=== PATIENT | male | born 1990 | race Caucasian/White ===

== ENCOUNTER 2020-04-08 09:54 | Observation (INO) | payer OTHER, SELFPAY ==
[2020-04-08] VITALS (20 sets, daily range): BP systolic 110–144; BP diastolic 60–89; PULSE 44–71; RESP 17–24; TEMP 36–37.1; O2SAT 98–100
[2020-04-08 10:22] LABS: Abs Immature Grans 0.03 10^3/uL (0.0-0.06); HCT 46.9 % (40.0-50.0); HGB 15.8 g/dL (13.5-17.5); MCH 30.5 pg (27.0-33.0); MCHC 33.7 % (32.0-36.0); MCV 90.5 fL (80-95); MPV 13.3 fL (8.0-11.0); Nucleated RBC 0 %; RBC 5.18 10^6/uL (4.36-5.78); RDW 12.7 % (11.8-14.1); RDW-SD 42.1 fL
[2020-04-08 10:34] LABS: ALT 30 U/L (16-63); AST 18 U/L (15-37); Albumin 4.2 g/dL (3.4-5.0); Alkaline Phosphatase 115 U/L (46-116); Anion Gap 8.4 mmol/L (3-11); BUN 8 mg/dL (7-18); CO2 28.6 mmol/L (21.0-32.0); CREATININE 0.98 mg/dL (0.70-1.30); Calcium 9.1 mg/dL (8.5-10.1); Chloride 104 mmol/L (98-107); Glucose 93 mg/dL (74-106); Lipase 44 U/L (73-393); Potassium 4.1 mmol/L (3.5-5.1); Sodium 141 mmol/L (136-145); Total Protein 7.8 g/dL (6.4-8.2)
[2020-04-08] MEDS: Normal Saline 1,000 ML 1000 ML IV (10:34)
[2020-04-08] MEDS: Ketorolac 30 MG/ML VIAL IVP (10:34)
[2020-04-08 10:35] LABS: Absolute Lymphocyte Count 2.18 10^3/uL (1.2-3.4); Absolute Neutrophil Count 8.35 10^3/uL (1.2-6.7); Atypical Lymphocytes % 5
[2020-04-08 10:36] LABS: Absolute Monocyte Count 1.57 10^3/uL (0.1-0.8); Diff Comment Manual Differential; RBC Morphology Normal
[2020-04-08 10:37] LABS: Platelet Count 157 10^3/uL (130-400)
[2020-04-08 10:57] LABS: Bilirubin Negative (Negative); Blood Negative (Negative); Clarity Clear (Clear); Glucose Negative (Negative); Ketones Negative (Negative); Leukocyte Esterase Negative (Negative); Nitrite Negative (Negative); Urobilinogen 0.2 EU/dL (Up TO 0.2)
--- NOTE | 2020-04-08 11:00 | DI.CT_ITS ---
EXAM: CT ABDOMEN PELVIS W CLINICAL HISTORY: rlq pain, anorexia, r/o appe TECHNIQUE: Imaging Protocol: Axial computed tomography images with coronal and sagittal reformatted images were created and reviewed CONTRAST MATERIAL: Intravenous: Omnipaque 350 Contrast volume:100 mL Oral: No COMPARISON: No exams were available for comparison FINDINGS: ABDOMEN: Lung Bases: Normal where visualized. Liver: Normal density. No measurable mass. Portal, Superior Mesenteric, and Splenic Veins: Unremarkable. Gallbladder and Biliary Tract: No radiodense calculus or dilation. Pancreas: Normal density, no abnormal calcifications or inflammatory process. Spleen: Normal. Adrenals: No masses seen. Kidneys: Normal size, contour and axis. 2 mm nonobstructing stone in the midpole of the left kidney. No masses seen. Abdominal Aorta: Abdominal portion non-dilated. Bowel: No obstruction or bowel wall thickening. The appendix measures 1.4 cm in diameter. There is s urrounding inflammation. An appendicolith is present. The finding is consistent with acute appendic itis. Peritoneal Cavity: No abscess or pneumoperitoneum. Lymph Nodes: Mildly enlarged lymph nodes are seen in the right lower quadrant which are likely reacti ve. Bones: Unremarkable. Soft Tissues: Unremarkable. PELVIS: Bladder: Symmetric distention, no gross wall thickening. Reproductive Organs: Unremarkable as visualized. Lymph Nodes: Mildly enlarged lymph nodes are seen in the right lower quadrant which are likely reacti ve. Bones: Within normal limits. IMPRESSION: Findings consistent with acute appendicitis. There is an appendicolith. No abscess or free air. The findings were discussed with the emergency department on the date of the examination. RADIATION DOSE DELIVERED: Total DLP DATA REPOSITORY: All CT scans at this facility are submitted to the National Radiology Data Registry (NRDR) Dose Index Registry (DIR) with the [employer] (A[employer]). RADIATION OPTIMIZATION: All CT scans at this facility use at least one of these dose optimization te chniques: automated exposure control; mA and/or kV adjustment per patient size (includes targeted exa ms where dose is matched to clinical indication); or iterative reconstruction.
[2020-04-08] MEDS: Omnipaque 350 MG/ML 100 ML BTL IJ (11:02)
[2020-04-08] MEDS: Normal Saline - Diluent 50 ML VIAL IV (11:07)
--- NOTE | 2020-04-08 11:14 | ED.GENADUL_ITS ---
Discharge Plan Disposition Patient Disposition: [facility] INPATIENT Condition: Stable Discharge Details Chief Complaint: Abd Prob Clinical Impression: Appendicitis Attending Provider: Rosalba Millan Primary Care Provider: None,None ED Provider: Gonzalo Osorio Discharge Data Discharge Date/Time-TO BE ENTERED AT DEPARTURE: 04/08/20 12:14 Medical Decision Making 29-year-old male presents with 2 days of right lower quadrant abdominal pain, suspected fever at home, but no temperature to confirm. Physical exam demonstrates right lower quadrant abdominal tenderness, with rebound. Negative Rovsing sign, differential is highest for appendicitis. CT scan reveals appendicitis and appendicolith. Will consult surgery, he does have mild white count but is otherwise hemodynamically stable. Will start Zosyn, discussed the case with Dr. Millan, she agrees on indications for surgery. Patient will be transferred to surgery for surgical management. I have extensively reviewed the treatment plan with the patient. I have addressed all patient concerns at this time. I have also discussed the plan with the admitting physician and they agree with the current assessment and plan and have agreed to assume responsibility for the patient. All parties demonstrate verbal understanding and agreement with our assessment and plan at this time. Also of note I did contact the patient's significant other and informed her of the plan. She is in agreement. All questions were answered. HPI General Date/Time Provider Initiated Documentation: 04/08/20 10:08 . HPI Narrative: 29-year-old male who is currently visiting from [place], presents for abdominal pain in the right lower quadrant for the past 2 days, he is eaten nothing since yesterday afternoon. Does admit to thin stools but denies constipation diarrhea or vomiting. He denies numbness or tingling. He does admit to chills and a subjective fever. He denies chest pain tearing or ripping sensation. No other sick contacts. No other complaints at this time. No prior abdominal surgeries. Related Data Home Medications Medication Instructions Recorded Confirmed Unknown [No Known Home Meds] 04/08/20 04/08/20 Allergies Allergy/AdvReac Type Severity Reaction Status Date / Time No Known Allergies Allergy Unverified 04/08/20 10:32 General Stated Complaint: Abd Prob WILIAN: 3 Review of Systems All systems reviewed & are unremarkable except as noted in HPI and below PFSH Social History (Reviewed 04/08/20 @ 13:11 by AMRIAN Leyva Smoking/Tobacco Use Status: Never Alcohol Intake: current Alcohol Intake frequency: a few times a week Alcohol type: beer Drug use: Never Substance use type: does not use Do you feel safe at home: Yes Do you feel safe in your relationship?: Yes Exam Narrative Exam Narrative: 1.Const: Well-nourished, Well-developed, appearing stated age 2.Eyes: PERRL, no conjunctival injection, and symmetrical lids. 3.ENT: Atraumatic external nose and ears. Moist MM. Neck: Symmetric, trachea midline, No thyromegaly. 4.CVS: +S1/S2, No murmurs or gallops. Peripheral pulses 2+ and equal in all extremities. Brisk capillary refill in all extremities. 5.RESP: Unlabored respiratory effort. Clear to auscultation bilaterally. No wheezes rales or rhonchi 6.GI: Soft, right lower quadrant abdominal pain, positive pain at McBurney's point, negative Akbar sign. Negative obturator and psoas sign. Genital exam demonstrates normal cremasteric reflex, no testicular or scrotal tenderness. 7.MSK: Normocephalic/Atraumatic, Extremities w/o deformity or ttp No cyanosis or clubbing, Normal movement of all extremities 8.Skin: Warm, Dry. No rashes or lesions. 9.Neuro: integrated marketing specialist II-XII grossly intact. Sensation grossly intact, no focal neurologic deficits. 10.Psych: (AAO) x3. Appropriate mood and affect Course Vital Signs Vital signs: Vital Signs Temperature 37.1 C 04/08/20 10:01 Pulse 71 04/08/20 10:01 Blood Pressure 138/84 04/08/20 10:01 Pulse Oximetry 98 04/08/20 10:01 Temperature 37.1 C 04/08/20 10:01 Temperature Source Oral 04/08/20 10:01 Pulse 71 04/08/20 10:01 Respiratory Effort Non-Labored 04/08/20 10:32 Blood Pressure 138/84 04/08/20 10:01 Blood Pressure Position Sitting 04/08/20 10:01 Pulse Oximetry 98 04/08/20 10:01 Oxygen Delivery Method Room Air 04/08/20 10:01 Oxygen Flow Rate 0 04/08/20 10:01 Pain Level 5 04/08/20 10:01 Lab/Test Results Lab/Test Results: Laboratory Tests Range/Units 04/08/20 04/08/20 04/08/20 10:10 10:10 10:10 WBC (4.4-10.8) 10^3/uL 12.10 H RBC (4.36-5.78) 10^6/uL 5.18 Hgb (13.5-17.5) g/dL 15.8 Hct (40.0-50.0) % 46.9 MCV (80-95) fL 90.5 MCH (27.0-33.0) pg 30.5 MCHC (32.0-36.0) % 33.7 RDW (11.8-14.1) % 12.7 Plt Count (130-400) 10^3/uL 157 MPV (8.0-11.0) fL 13.3 H Immature Gran % 0.0 Neutrophils % 69.0 Lymphocytes % 13.0 Atypical Lymphs % 5 Monocytes % 13.0 Eosinophils % 0.0 Basophils % 0.0 Nucleated RBC % % 0 Absolute Neutrophils (1.2-6.7) 10^3/uL 8.35 H Absolute Lymphocytes (1.2-3.4) 10^3/uL 2.18 Absolute Monocytes (0.1-0.8) 10^3/uL 1.57 H Absolute Eosinophils (0.0-0.7) 10^3/uL 0.00 Absolute Basophils (0.0-0.2) 10^3/uL 0.00 RBC Morphology Normal VBG Lactate (0.6-1.4) mmol/L 1.0 Sodium (136-145) mmol/L 141 Potassium (3.5-5.1) mmol/L 4.1 Chloride (98-107) mmol/L 104 Carbon Dioxide (21.0-32.0) mmol/L 28.6 Anion Gap (3-11) mmol/L 8.4 BUN (7-18) mg/dL 8 Creatinine (0.70-1.30) mg/dL 0.98 Estimated GFR/1.73 m2 (mL/min/1.73m2) >= 60.00 Glucose (74-106) mg/dL 93 Calcium (8.5-10.1) mg/dL 9.1 Total Bilirubin (0.2-1.0) mg/dL 1.0 AST (15-37) U/L 18 ALT (16-63) U/L 30 Alkaline Phosphatase (46-116) U/L 115 Total Protein (6.4-8.2) g/dL 7.8 Albumin (3.4-5.0) g/dL 4.2 Lipase (73-393) U/L 44 Urine Color (Yellow) Urine Clarity (Clear) Urine pH (5-8) Ur Specific [place] (1.005-1.025) Urine Protein (Negative) mg/dL Urine Ketones (Negative) mg/dL Urine Blood (Negative) Urine Nitrite (Negative) Urine Bilirubin (Negative) Urine Urobilinogen (Up TO 0.2) EU/dL Ur Leukocyte Esterase (Negative) Urine Glucose (Negative) mg/dL Range/Units 04/08/20 10:40 WBC (4.4-10.8) 10^3/uL RBC (4.36-5.78) 10^6/uL Hgb (13.5-17.5) g/dL Hct (40.0-50.0) % MCV (80-95) fL MCH (27.0-33.0) pg MCHC (32.0-36.0) % RDW (11.8-14.1) % Plt Count (130-400) 10^3/uL MPV (8.0-11.0) fL Immature Gran % Neutrophils % Lymphocytes % Atypical Lymphs % Monocytes % Eosinophils % Basophils % Nucleated RBC % % Absolute Neutrophils (1.2-6.7) 10^3/uL Absolute Lymphocytes (1.2-3.4) 10^3/uL Absolute Monocytes (0.1-0.8) 10^3/uL Absolute Eosinophils (0.0-0.7) 10^3/uL Absolute Basophils (0.0-0.2) 10^3/uL RBC Morphology VBG Lactate (0.6-1.4) mmol/L Sodium (136-145) mmol/L Potassium (3.5-5.1) mmol/L Chloride (98-107) mmol/L Carbon Dioxide (21.0-32.0) mmol/L Anion Gap (3-11) mmol/L BUN (7-18) mg/dL Creatinine (0.70-1.30) mg/dL Estimated GFR/1.73 m2 (mL/min/1.73m2) Glucose (74-106) mg/dL Calcium (8.5-10.1) mg/dL Total Bilirubin (0.2-1.0) mg/dL AST (15-37) U/L ALT (16-63) U/L Alkaline Phosphatase (46-116) U/L Total Protein (6.4-8.2) g/dL Albumin (3.4-5.0) g/dL Lipase (73-393) U/L Urine Color (Yellow) Yellow Urine Clarity (Clear) Clear Urine pH (5-8) 8.0 Ur Specific [place] (1.005-1.025) 1.020 Urine Protein (Negative) mg/dL Negative Urine Ketones (Negative) mg/dL Negative Urine Blood (Negative) Negative Urine Nitrite (Negative) Negative Urine Bilirubin (Negative) Negative Urine Urobilinogen (Up TO 0.2) EU/dL 0.2 Ur Leukocyte Esterase (Negative) Negative Urine Glucose (Negative) mg/dL Negative
[2020-04-08] MEDS: PIPERACILLIN/TAZO 4.5 GM in Normal Saline 100 ML IVPB (11:30)
--- NOTE | 2020-04-08 11:55 | HPE_ITS ---
Date of service: 04/08/20 Time of Service: 11:55 Assessment and Plan Assessment and plan (1) Appendicitis: Status: Acute Assessment and plan: Patient presents with a 48 hour history of RLQ pain with associated nausea and anorexia. CT scan shows appendicitis. Reviewed and discussed laparoscopic appendectomy procedure. Discussed possible complications of the procedure to include bleeding, pain, perforation, infection, sore throat, aspiration and adverse reaction to the medications. Questions were answered to patient?s satisfaction. No guarantees were implied or given. P// Laparoscopic Appendectomy History of Present Illness History of Present Illness Chief Complaint: RLQ Pain Narrative: 29 y/o male with a benign medial history presented to the ER with complaints of RLQ pain x 48 hours with associated nausea and anorexia. He reports over the past 2 days he had progressively worsening lower abdominal pain, which did not improve. He describes subjective fevers and chills. CT scan showed appendicitis. He denies any history of asthma, chest pain, palpitations, dyspnea or dysnpea with exertion. He has never had surgery nor anesthesia for any procedure. He has been visiting [place] for the past several weeks with his significant other. Review of Systems Cardiovascular Cardiovascular: Denies dyspnea on exertion Respiratory Respiratory: Denies cough and Denies dyspnea on exertion Gastrointestinal Gastrointestinal: Reports as per [facility] Social History Smoking/Tobacco Use Status: Never Alcohol Intake: current Alcohol Intake frequency: a few times a week Alcohol type: beer Drug use: Never Substance use type: does not use Do you feel safe at home: Yes Do you feel safe in your relationship?: Yes Meds Home Medications and Allergies Home Medications Medication Instructions Recorded Confirmed Type Unknown [No Known Home Meds] 04/08/20 04/08/20 History Allergies Allergy/AdvReac Type Severity Reaction Status Date / Time No Known Allergies Allergy Unverified 04/08/20 10:32 Exam Const General: cooperative, healthy appearing and in distress mild Orientation: alert and oriented x3 Resp Effort & Inspection: normal respiratory effort, no audible wheezes and no cough Auscultation: clear to auscultation bilaterally Cardio Rate: regular rate Rhythm: regular rhythm Heart Sounds: S1 normal, S2 normal and no murmurs GI Palpation: soft, guarding and tender in the RLQ Auscultation: hypoactive bowel sounds Results Labs Result diagrams: 04/08/20 10:10 04/08/20 10:10 Labs: Laboratory Results - last 24 hr 04/08/20 04/08/20 04/08/20 10:10 10:10 10:10 WBC 12.10 H RBC 5.18 Hgb 15.8 Hct 46.9 MCV 90.5 MCH 30.5 MCHC 33.7 RDW 12.7 Plt Count 157 MPV 13.3 H Immature Gran % 0.0 Neutrophils % 69.0 Lymphocytes % 13.0 Atypical Lymphs % 5 Monocytes % 13.0 Eosinophils % 0.0 Basophils % 0.0 Nucleated RBC % 0 Absolute Neutrophils 8.35 H Absolute Lymphocytes 2.18 Absolute Monocytes 1.57 H Absolute Eosinophils 0.00 Absolute Basophils 0.00 RBC Morphology Normal VBG Lactate 1.0 Sodium 141 Potassium 4.1 Chloride 104 Carbon Dioxide 28.6 Anion Gap 8.4 BUN 8 Creatinine 0.98 Estimated GFR/1.73 m2 >= 60.00 Glucose 93 Calcium 9.1 Total Bilirubin 1.0 AST 18 ALT 30 Alkaline Phosphatase 115 Total Protein 7.8 Albumin 4.2 Lipase 44 Urine Color Urine Clarity Urine pH Ur Specific [place] Urine Protein Urine Ketones Urine Blood Urine Nitrite Urine Bilirubin Urine Urobilinogen Ur Leukocyte Esterase Urine Glucose 04/08/20 10:40 WBC RBC Hgb Hct MCV MCH MCHC RDW Plt Count MPV Immature Gran % Neutrophils % Lymphocytes % Atypical Lymphs % Monocytes % Eosinophils % Basophils % Nucleated RBC % Absolute Neutrophils Absolute Lymphocytes Absolute Monocytes Absolute Eosinophils Absolute Basophils RBC Morphology VBG Lactate Sodium Potassium Chloride Carbon Dioxide Anion Gap BUN Creatinine Estimated GFR/1.73 m2 Glucose Calcium Total Bilirubin AST ALT Alkaline Phosphatase Total Protein Albumin Lipase Urine Color Yellow Urine Clarity Clear Urine pH 8.0 Ur Specific [place] 1.020 Urine Protein Negative Urine Ketones Negative Urine Blood Negative Urine Nitrite Negative Urine Bilirubin Negative Urine Urobilinogen 0.2 Ur Leukocyte Esterase Negative Urine Glucose Negative Last Vital Signs Temp 37.1 C 04/08/20 10:01 Pulse 71 04/08/20 10:01 BP 138/84 04/08/20 10:01 Pulse Ox 98 04/08/20 10:01
[2020-04-08] MEDS: Lactated Ringers 1,000 ML 75 ML IV ×2 (12:30→15:33)
[2020-04-08] MEDS: Bupivacaine LIPOSOME/PF 133 MG/10 ML VIAL IJ (13:02)
--- NOTE | 2020-04-08 13:10 | APP_PTH ---
PATIENT: EDWINA PINEDA LOC: U#:[id number] AGE/SX: 29/M ROOM: 217 RE04/08/[address]: Rosalba Millan MD : 1990 BED: A DIS: 04/08/2020 SPEC #: [id number] RECD: 04/09/20 08:54 STATUS: REGINA REQ #: [id number] SANTHOSH: 04/08/20 13:[address]: Rosalba Millan DEPT: Surgical Specimen RECD BY: Naomie Faith ENTERED: 04/09/20 08:54 SP TYPE: Appendix OTHR DR: None Tissues: 1 - APPENDIX NOT INCIDENTAL Procedures: GROSS AND MICRO LEVEL 3 Comments: [id number]
--- NOTE | 2020-04-08 13:45 | W.PM.OP ---
Date of service: 04/08/20 Time of Service: 13:49 Operative Note Operative Note DATE OF PROCEDURE: 04/08/20 PRE-OP DIAGNOSIS: Appendicitis POST-OP DIAGNOSIS: same PROCEDURE: laparoscopic Appendectomy SURGEON: Rosalba Millan PREPARATION SUPERVISOR CANNING: Aracely Freitas ANESTHESIA: GETA (ASA 1E/ Mauri Atwood CRNA) ESTIMATED BLOOD LOSS: 25 PATHOLOGY: other (Appendix) COMPLICATIONS: None Patient was transported to: PACU Patient's condition: stable Indications: Mr. Daugherty is a pleasant 29 year old male who has had abdominal pain for 48 hours. He has had some loose stools and nausea. CT scan showed acute appendicitis without rupture Laparoscopic Appendectomy was recommended. Risks, benefits and complications have been reviewed. Complications include but are not limited to bleeding, infection, injury to adjacent bowel, abscess formation, staple line leak, inability to do the procedure laparoscopically and adverse reaction to the medications. Questions were entertained and answered to their satisfaction and they wished to proceed. No guarantees were given or implied. Findings: Inflamed appendix, retrocecal Procedure Description: After informed consent was obtained the patient was taken to the operating room placed in the supine position SCDs were applied as well as monitors. A timeout was done. The patient was then placed under general anesthesia and intubated without any difficulty. Next a Sawyer catheter was placed in a standard surgical fashion. The hair was clipped on the lower abdomen. At this point the abdomen was prepped and draped in a sterile surgical fashion with chlorhexidine. A second timeout was done and the patient's name, date of , operation to be performed, DVT prophylaxis, antibiotic given, and fire risk was assessed. Exparel was injected into the dermis just above the umbilicus. A small 5 mm incision was made with an 11 blade. The skin was grasped with penetrating towel clamps on either side of the incision and then using a Visiport a 5 mm port was placed under direct visualization into the abdomen. The abdomen was insufflated. Local anesthetic was then injected just above the pubic symphysis just to the right of midline. A small 5 mm incision was made with an 11 blade and another 5 mm port was placed under direct visualization into the abdomen. The local anesthetic was then injected in the left lower quadrant area and a 11 mm incision was made with an 11 blade. A 11 mm port was then placed under direct visualization. The patient's bed was then turned to the left head down allowing me to sweep of the small bowel out of the right lower quadrant. The cecum was gently grasped and the appendix was identified. The appendix looked inflammed and thickened. The appendix was retrocecal. Light brown fluid was noted in the pelvis. The cecum was noted to be redundant. The appendix was grasped at the neck and pulled up slightly allowing me to visualize the junction with the cecum. Using the Amanda dissector a small window was made in the meso-appendix. Using a laparoscopic straight stapler the appendix was transected at the junction with the cecum. Using the laparoscopic LigaSure the mesoappendix was slowly transected. This was difficult due to adhesions between the meso-appendix and the cecum. Once the meso-appendix was transected, the appendix was placed into an Endo Catch bag and removed through the 11 mm port site. The port was placed back into the abdomen and the staple line was identified. No bleeding was noted. The transected mesentery was identified and no bleeding was noted. The abdomen was then irrigated with 500 cc of warm normal saline. The effluent was clear. The staple line was inspected one more time and no bleeding was identified at this point. The 2 5 mm ports were then removed under direct visualization and no bleeding was noted from the fascia. The insufflation was stopped and the 11 mm port was removed. The 11 mm port site fascia was closed with a 0 Vicryl [id number] suture. The skin was then closed with 4-0 Vicryl. The skin was cleaned and dried and skin affix was applied. The patient was woken up, extubated and taken back to recovery room in stable condition. There were no immediate complications. Sponge instrument needle counts were correct at the end of the case x2.
[2020-04-08] MEDS: Normal Saline Flush 10 ML SYR IVP (15:37)
[2020-04-08] MEDS: Pantoprazole 40 MG VIAL IVP (15:37)
--- NOTE | 2020-04-08 18:43 | W.PM.DS.N ---
Date of service: 04/08/20 Time of Service: 18:43 DS: Diagnosis Discharge Diagnosis (1) Appendicitis: Status: Acute Discharge Plan Disposition Patient Disposition: HOME Condition: Stable Discharge Details Chief Complaint: Abd Prob Clinical Impression: Appendicitis Reason For Visit: appendicitis Admit Date/Time: 04/08/20 14:30 Admit Provider: Rosalba Millan Attending Provider: Rosalba Millan Primary Care Provider: None,None ED Provider: Gonzalo Osorio Hospital Course Hospital Course: pt came into the ED w/ s/s of acute appendicitis adn labs and CT compatible w/ such. He underwent unremarkable laspreascopic appendectomy. He is doing well at this time. He is tolerating a regular diet. He i sup walking around. He has urinated. His pain is controlled. He is discharged in stable adn satisfactory conditions w/ instructions in wound care/activity/warning signs. Home Meds and New Rx's Prescriptions: New ibuprofen 600 mg tablet 600 mg PO Q6H PRNQty: 90 RF: 0 tramadol 50 mg tablet 50 mg PO Q6H PRN (Reason: pain (scale score 7-10)) Qty: 10 RF: 0 Discharge Instructions Additional Instructions: Keep an ice bag on the incision. 20 minutes on and 20 minutes off. Ice keeps the swelling down and swelling causes pain. Make sure you wrap the ice pack in a towel and don't apply directly to the skin. -No driving x 72hrs or of you are taking narcotic pain medications. -Do Not remove any steri tapes (white tapes) that cover the incision. You can remove the tegaderm dressings in am. -Follow-up with regular healthcare provider in one weeks time. -soft diet: No beef/pork raw vegetables x1 -week. Cooked vegetables are fine -no straining to move bowels -pain meds are very constipating: if you do not move your bowels daily take a dose of OTC milk of magnesia -It is ok to shower. No bathe, soaking, swimming or hot tubs -Keep wound clean and dry. Wash incision with soap and water daily. Pat dry, don't rub. -If you do not have steri-tapes on your incision, than keep the wound covered with a gauze and antibacterial ointment. -You may find that your appetite is smaller. Eat 3-6 small meals throughout the day. It is important to drink lots of water after surgery, 6-10 glasses a day. -If you were given an incentive spirometry (breathing marketing services manager?), continue to do this 10x/hour while awake. -We do want you up walking, at least 5-6 times per day. This is very important to prevent pneumonia and blood clots. You can climb stairs, take them slowly. -No lifting over 5 pounds x 2 wks. This is very important to avoid developing a hernia in your incision. -You may find that you are very tired after surgery- this is normal. -please do not smoke for a minimum of 72 hours after surgery. Caring for Your Incision You?ll need to help care for your incision after surgery. To close an incision, your healthcare provider used stitches (sutures), and special strips of surgical tape called Steri-Strips. Follow the tips on this sheet to help stop bleeding, speed healing, and prevent infection of your incision. Pain Control Use ice! Ice keeps the swelling down and swelling is what causes pain. Never apply ice directly to the skin. Wrap it in a towel or cloth. Apply ice 20 minutes on and 20 minutes off for pain control. Use as needed. Take tylenol 325 mg by mouth with food every 4 hours as needed for pain. Or ibuprofen 600 mg by mouth with food every 6 hours as needed for pain. Do not take tylenol if you have a history of heavy drinking , hepatits C or liver problems. Do not take ibuprofen if you have a history of stomach ulcers/problems, bleeding problem or kidney issues. Home care ? Always wash your hands before touching your incision. ? Keep the incision clean, dry, and out of water, keep the incision out of water. ? Do not to pick at the scabs. Scabs help protect the wound. ? You can take a shower in 24 hours and wash the incision with soap and water. Pat dry/don?t scrub. It?s OK to wash around the incision. But don?t spray water directly on it. ? Pat stitches dry if they get wet. Don't rub. ? Check the incision site daily for pain, redness, drainage, swelling, or separation of the incision edges. ? If there is a bandage (dressing) over the incision, change this every 24 hours as instructed by your provider. Using clean hands change the dressing as directed by your healthcare provider. Always wash your hands before changing your dressing. ? Make sure any clothing that touches the incision is loose-fitting. This will prevent rubbing. If the incision is on the head, keep your child from wearing caps or other head coverings. These may rub against the incision. ? Try to avoid from rough play, contact sports, or physical activities for two weeks. This can put you at risk of opening the incision. ? Make sure you avoid doing things that could cause dirt or sweat to get in or on the incision. As your incision heals, the skin may appear pink or red. It may also feel slightly bumpy or raised. This is called a healing ridge. Over time, the color should fade and the raised skin will become less noticeable. When to seek medical care Call your healthcare provider right away if you have any of these: ? More pain, redness, swelling, bleeding, or foul-smelling discharge around the incision area ? Fever of 101?F (38.3?C) or higher, or as directed by your child's healthcare provider ? Shaking chills ? Vomiting or nausea that doesn?t go away ? Numbness, coldness, or tingling around the incision area, or changes in skin color ? Opening of the sutures or wound Stitches or ny come apart or fall out or surgical tape falls off before 7 days, or as directed by your healthcare provider [facility] on Monday to make appt w/ Dr. Millan in 7-10 days or F/u w/ your personal physician. [phone] Activity:: no strenuous activity or lifting over 10#'s x 2 wks Equipment/Supplies:: No Equipment Needed Diet:: small light meals x 24 hrs DS: Summary Status at Discharge Functional status at discharge: independent ambulation Overall status at discharge: patient is back to baseline Mental Status: mental status grossly normal Speech and Movement: speech and movement normal Mood: congruent mood Affect: normal affect Exam Psych Mental Status: mental status grossly normal Speech and Movement: speech and movement normal Mood: congruent mood Affect: normal affect DS: Data Vitals/I&O Vitals and I&O: Vital Signs Temperature 36.5 C 04/08/20 15:25 Temperature Source Skin 04/08/20 15:25 Pulse 56 L 04/08/20 15:25 Pulse Rhythm Regular 04/08/20 14:39 Respiratory Rate 18 04/08/20 15:25 Respiratory Effort Non-Labored 04/08/20 14:39 Respiratory Depth Normal 04/08/20 14:39 Respiratory Pattern Normal 04/08/20 14:39 Blood Pressure 133/71 04/08/20 15:25 Blood Pressure Mean 76 04/08/20 12:00 Blood Pressure Position Sitting 04/08/20 10:01 Pulse Oximetry 100 04/08/20 15:25 Respiratory End-tidal CO2 38 04/08/20 14:13 Oxygen Delivery Method Room Air 04/08/20 15:25 Oxygen Flow Rate 0 04/08/20 15:25 Pain Level 0 04/08/20 15:25 Comment 04/08/20 15:25 Intake & Output 04/07/20 04/08/20 04/08/20 23:59 11:59 23:59 Intake Total 1020 / 2036.25 1016.25 / 2036.25 Output Total 800 / 800 Balance 1020 / 1236.25 216.25 / 1236.25 Weight 97.522 kg 97.522 kg Intake: IV 1020 / 1796.25 776.25 / 1796.25 Oral 240 / 240 Output: Urine 800 / 800 Other: Urine Color Pale Yellow Emesis Description None Data Completed and Pending Labs on day of discharge: Labs from last 24 hours 04/08/20 04/08/20 04/08/20 10:40 10:35 10:10 WBC 12.10 H RBC 5.18 Hgb 15.8 Hct 46.9 MCV 90.5 MCH 30.5 MCHC 33.7 RDW 12.7 Plt Count 157 MPV 13.3 H Immature Gran % 0.0 Neutrophils % 69.0 Lymphocytes % 13.0 Atypical Lymphs % 5 Monocytes % 13.0 Eosinophils % 0.0 Basophils % 0.0 Nucleated RBC % 0 Absolute Neutrophils 8.35 H Absolute Lymphocytes 2.18 Absolute Monocytes 1.57 H Absolute Eosinophils 0.00 Absolute Basophils 0.00 RBC Morphology Normal VBG Lactate Sodium Potassium Chloride Carbon Dioxide Anion Gap BUN Creatinine Estimated GFR/1.73 m2 Glucose Calcium Total Bilirubin AST ALT Alkaline Phosphatase Total Protein Albumin Lipase Urine Color Yellow Urine Clarity Clear Urine pH 8.0 Ur Specific [place] 1.020 Urine Protein Negative Urine Ketones Negative Urine Blood Negative Urine Nitrite Negative Urine Bilirubin Negative Urine Urobilinogen 0.2 Ur Leukocyte Esterase Negative Urine Glucose Negative COVID-19 PCR Pending Nasopharyn COVID-19 PCR Pending Ref Test Perform Site Pending 04/08/20 04/08/20 10:10 10:10 WBC RBC Hgb Hct MCV MCH MCHC RDW Plt Count MPV Immature Gran % Neutrophils % Lymphocytes % Atypical Lymphs % Monocytes % Eosinophils % Basophils % Nucleated RBC % Absolute Neutrophils Absolute Lymphocytes Absolute Monocytes Absolute Eosinophils Absolute Basophils RBC Morphology VBG Lactate 1.0 Sodium 141 Potassium 4.1 Chloride 104 Carbon Dioxide 28.6 Anion Gap 8.4 BUN 8 Creatinine 0.98 Estimated GFR/1.73 m2 >= 60.00 Glucose 93 Calcium 9.1 Total Bilirubin 1.0 AST 18 ALT 30 Alkaline Phosphatase 115 Total Protein 7.8 Albumin 4.2 Lipase 44 Urine Color Urine Clarity Urine pH Ur Specific [place] Urine Protein Urine Ketones Urine Blood Urine Nitrite Urine Bilirubin Urine Urobilinogen Ur Leukocyte Esterase Urine Glucose COVID-19 PCR Nasopharyn COVID-19 PCR Ref Test Perform Site [facility] Social History Smoking/Tobacco Use Status: Never Alcohol Intake: current Alcohol Intake frequency: a few times a week Alcohol type: beer Drug use: Never Substance use type: does not use Do you feel safe at home: Yes Do you feel safe in your relationship?: Yes
--- NOTE | 2020-04-08 19:16 | W.PM.PROGNOT ---
Date of Service Date of service: 04/08/20 Time of Service: 17:30 Assessment and Plan Assessment and plan (1) Appendicitis: Status: Acute Assessment and plan: he patient is doing well post-op. There pain is well controlled. They are having no nausea or vomiting. The pt is not having any chest pain or SOB, productive cough; no calf pain or swelling. The pt is making good urine. The pt pain is adequately controlled. The case was discussed with nursing and pateints progress reviewed. All of the pt's home medications were addressed and adjusted accordingly for their oral intact status. HEENT: no janudice. no eye pain/drainage/redness/swelling. mild sore throat cardio- NSR no chest pain, BP stable. pulm: no sob or productive cough. no hemoptysis insicion- clean/dry. dressing intact no excessive bleeding or drainage I discussed with the patient and/or there family about the findings in surgery and the pt's progress. We reviewed expectations for progress in the hospital; what the pt could expect for recovery time and length of stay. We discussed the importance of walking and pulmonary toilet to avoid blood clots and pneumonia. Continue current plans for pulmonary toilet, GI and DVT prophalxis. We shall continue the current plan for pain mangament as it is at an appropraite level and working well for the pt. Appriopriate measures will be taken for constipation prevention as well, and this was also reviewed witht the pt. wound care plan was reviewed with nursing as well. Objective Objective Clinical Data: Abnormal lab results 04/08/20 Range/Units 10:10 WBC 12.10 H (4.4-10.8) 10^3/uL MPV 13.3 H (8.0-11.0) fL Absolute Neutrophils 8.35 H (1.2-6.7) 10^3/uL Absolute Monocytes 1.57 H (0.1-0.8) 10^3/uL Vital Signs Temperature 36.5 C 04/08/20 15:25 Temperature Source Skin 04/08/20 15:25 Pulse 56 L 04/08/20 15:25 Pulse Rhythm Regular 04/08/20 14:39 Respiratory Rate 18 04/08/20 15:25 Respiratory Effort Non-Labored 04/08/20 14:39 Respiratory Depth Normal 04/08/20 14:39 Respiratory Pattern Normal 04/08/20 14:39 Blood Pressure 133/71 04/08/20 15:25 Blood Pressure Mean 76 04/08/20 12:00 Blood Pressure Position Sitting 04/08/20 10:01 Pulse Oximetry 100 04/08/20 15:25 Respiratory End-tidal CO2 38 04/08/20 14:13 Oxygen Delivery Method Room Air 04/08/20 15:25 Oxygen Flow Rate 0 04/08/20 15:25 Pain Level 0 04/08/20 15:25 Comment 04/08/20 15:25 Intake & Output 04/07/20 04/08/20 04/08/20 23:59 11:59 23:59 Intake Total 1020 / 3956.25 2936.25 / 3956.25 Output Total 800 / 800 Balance 1020 / 3156.25 2136.25 / 3156.25 Weight 97.522 kg 97.522 kg Intake: IV 1020 / 1796.25 776.25 / 1796.25 Oral 2160 / 2160 Output: Urine 800 / 800 Other: Urine Color Pale Yellow Comment Void x1 in the toilet. Emesis Description None Voiding Methods Toilet Laboratory Results WBC 12.10 10^3/uL (4.4-10.8) H 04/08/20 10:10 RBC 5.18 10^6/uL (4.36-5.78) 04/08/20 10:10 Hgb 15.8 g/dL (13.5-17.5) 04/08/20 10:10 Hct 46.9 % (40.0-50.0) 04/08/20 10:10 MCV 90.5 fL (80-95) 04/08/20 10:10 MCH 30.5 pg (27.0-33.0) 04/08/20 10:10 MCHC 33.7 % (32.0-36.0) 04/08/20 10:10 RDW 12.7 % (11.8-14.1) 04/08/20 10:10 Plt Count 157 10^3/uL (130-400) 04/08/20 10:10 MPV 13.3 fL (8.0-11.0) H 04/08/20 10:10 Immature Gran % 0.0 04/08/20 10:10 Neutrophils % 69.0 09/02/20 10:10 Lymphocytes % 13.0 04/08/20 10:10 Atypical Lymphs % 5 04/08/20 10:10 Monocytes % 13.0 04/08/20 10:10 Eosinophils % 0.0 04/08/20 10:10 Basophils % 0.0 04/08/20 10:10 Nucleated RBC % 0 % 04/08/20 10:10 Absolute Neutrophils 8.35 10^3/uL (1.2-6.7) H 04/08/20 10:10 Absolute Lymphocytes 2.18 10^3/uL (1.2-3.4) 04/08/20 10:10 Absolute Monocytes 1.57 10^3/uL (0.1-0.8) H 04/08/20 10:10 Absolute Eosinophils 0.00 10^3/uL (0.0-0.7) 04/08/20 10:10 Absolute Basophils 0.00 10^3/uL (0.0-0.2) 04/08/20 10:10 RBC Morphology Normal 04/08/20 10:10 VBG Lactate 1.0 mmol/L (0.6-1.4) 04/08/20 10:10 Sodium 141 mmol/L (136-145) 04/08/20 10:10 Potassium 4.1 mmol/L (3.5-5.1) 04/08/20 10:10 Chloride 104 mmol/L (98-107) 04/08/20 10:10 Carbon Dioxide 28.6 mmol/L (21.0-32.0) 04/08/20 10:10 Anion Gap 8.4 mmol/L (3-11) 04/08/20 10:10 BUN 8 mg/dL (7-18) 04/08/20 10:10 Creatinine 0.98 mg/dL (0.70-1.30) 04/08/20 10:10 Estimated GFR/1.73 m2 >= 60.00 (mL/min/1.73m2) 04/08/20 10:10 Glucose 93 mg/dL (74-106) 04/08/20 10:10 Calcium 9.1 mg/dL (8.5-10.1) 04/08/20 10:10 Total Bilirubin 1.0 mg/dL (0.2-1.0) 04/08/20 10:10 AST 18 U/L (15-37) 04/08/20 10:10 ALT 30 U/L (16-63) 04/08/20 10:10 Alkaline Phosphatase 115 U/L (46-116) 04/08/20 10:10 Total Protein 7.8 g/dL (6.4-8.2) 04/08/20 10:10 Albumin 4.2 g/dL (3.4-5.0) 04/08/20 10:10 Lipase 44 U/L (73-393) 04/08/20 10:10 Urine Color Yellow (Yellow) 04/08/20 10:40 Urine Clarity Clear (Clear) 04/08/20 10:40 Urine pH 8.0 (5-8) 04/08/20 10:40 Ur Specific [place] 1.020 (1.005-1.025) 04/08/20 10:40 Urine Protein Negative mg/dL (Negative) 04/08/20 10:40 Urine Ketones Negative mg/dL (Negative) 04/08/20 10:40 Urine Blood Negative (Negative) 04/08/20 10:40 Urine Nitrite Negative (Negative) 04/08/20 10:40 Urine Bilirubin Negative (Negative) 04/08/20 10:40 Urine Urobilinogen 0.2 EU/dL (Up TO 0.2) 04/08/20 10:40 Ur Leukocyte Esterase Negative (Negative) 04/08/20 10:40 Urine Glucose Negative mg/dL (Negative) 04/08/20 10:40
[2020-04-09 00:01] LABS: COVID-19 RT-PCR UVMMC Result Negative (Negative)
== END 2020-04-08 19:45 | disposition home or self-care (01) ==
LOC: ER 11:33 → SUR 12:07 → ER 14:55 → MS 14:55
PROVIDERS: Admitting Provider Surgery; Emergency Provider Student in an Organized Health Care Education/Training Program; Visit Provider Surgery
PROC: 0DTJ4ZZ Resection of Appendix, Percutaneous Endoscopic Approach (ICD-10-PCS; CPT 44970; principal; 2020-04-08 12:00)
DX: K35.890 Other acute appendicitis without perforation or gangrene (principal); Z11.59 Encounter for screening for other viral diseases
CPT/HCPCS: 44970; 36415; 80053; 83690; 96361; 96365; 96375; 99223; 99238; 99285; NC; U0003; 74177; 81003; 83605; 85025; 88304; G0378; J1100; J1885; J2405; J2543; J2704; J3490